=== PATIENT | female | born 1965 | race African-American/Black ===

== ENCOUNTER 2018-03-15 02:58 | Emergency (ER) | payer MEDICAID ==
[~2018-03-15] VITALS: Ht 170.2 cm; Wt 75.0 kg
[2018-03-15] MEDS ORDERED: HYDROCODONE/ACETAMINOPHEN 5/325MG TABLET PO ONE (04:15)
[2018-03-15 06:54] VITALS: BP 136/84
== END 2018-03-15 06:56 | disposition home or self-care (01) ==
LOC: ER 02:58
DX: S00.83XA Contusion of other part of head, initial encounter (principal); R51 Headache; S10.93XA Contusion of unspecified part of neck, initial encounter; S40.012A Contusion of left shoulder, initial encounter; S02.2XXA Fracture of nasal bones, initial encounter for closed fracture; S90.02XA Contusion of left ankle, initial encounter; F17.210 Nicotine dependence, cigarettes, uncomplicated; F12.90 Cannabis use, unspecified, uncomplicated; R03.0 Elevated blood-pressure reading, without diagnosis of hypertension; V78.1XXA Passenger on bus injured in noncollision transport accident in nontraffic accident, initial encounter; Y93.89 Activity, other specified; Y92.811 Bus as the place of occurrence of the external cause
CPT/HCPCS: 70450; 70486; 72125; 73030; 73610; 99284